=== PATIENT | female | born 1935 | race Caucasian/White ===

== ENCOUNTER 2016-07-18 10:08 | Observation (INO) | payer MEDICARE, OTHER ==
--- NOTE | 2016-07-18 11:25 | EDM.PDOC ---
ED HPI GI/ABDOMINAL - General Chief Complaint: Gastrointestinal Problem Stated Complaint: SOB, FLU SYMPTOMS, DIZZY Time Seen by Provider: 07/18/16 11:06 Source: Reports: Patient, Family, RN notes reviewed History Limitations: Reports: No limitations - History of Present Illness INITIAL COMMENTS - FREE TEXT/NARRATIVE: 80-year-old female presents emergency department a complaint of diarrhea she's been ill for the last 4 days has had loose watery stools on and off been feverish initially had upper respiratory type symptoms but that now has resolved her biggest concern is dehydration - Related Data Allergies/ADRs: Allergies Allergy/AdvReac Type Severity Reaction Status Date / Time gluten Allergy Diarrhea Verified 09/05/15 09:39 ibuprofen [From Motrin] Allergy Hives Verified 09/05/15 09:39 Iodinated Contrast Media - Allergy Hives Verified 09/05/15 09:39 Oral and [Iodinated Contrast Media - IV Dye] nifedipine [From Procardia] Allergy Redness Verified 09/05/15 09:39 Home Meds: Home Meds Acetaminophen/Diphenhydramine [Tylenol Pm Ex-Strength Caplet] 1 tab PO BEDTIME PRN 09/02/15 [History] Bismuth Subsalicylate [Pepto-Bismol To-Go] 2 tab PO ASDIRECTED PRN 09/02/15 [ History] Calcium Carbonate/Vitamin D3 [Calcium 500 + Vit D 400] 1 tab PO BID 09/02/15 [ History] Cholecalciferol (Vitamin D3) [Vitamin D3] 1,000 units PO DAILY 09/02/15 [History ] Clopidogrel [Plavix] 75 mg PO QPM 09/02/15 [History] Flaxseed 2 tbsp PO DAILY 09/02/15 [History] Loperamide [Imodium] 2 mg PO ASDIRECTED PRN 09/02/15 [History] Multivitamin [Multivitamins] 1 cap PO QPM 09/02/15 [History] Simvastatin [Zocor] 40 mg PO QPM 09/02/15 [History] Triamcinolone Acetonide 1 applic TOP BID 09/02/15 [History] Triamterene/Hydrochlorothiazid [Triamterene-HCTZ 37.5-25 MG] 1 tab-cap PO DAILY 09/02/15 [History] Pantoprazole Sodium [Protonix] 40 mg PO BID 09/04/15 [History] Past Medical History HEENT History: Reports: Cataract, Impaired vision, Other (see below) Other HEENT History: left hear decreased hearing Cardiovascular History: Reports: High cholesterol, Hypertension, SOB on exertion , Other (see below) Other Cardiovascular History: skip beat now and then rhythm issue, dependent cyanosis of feet bilat- no dx of PVD Gastrointestinal History: Reports: Cholelithiasis, Chronic diarrhea, GERD, Hemorrhoids, Other (see below) Other Gastrointestinal History: 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 Oncologic (Cancer) History: Reports: Squamous cell carcinoma, Other (see below) Other Oncologic History: basal cell, abnormal pap and hsterectomy (unkown if CA) Dermatologic History: Reports: Urticaria, Other (see below) Other Dermatologic History: unknown skin issue on head that comes and goes - Infectious Disease History Infectious Disease History: Reports: Measles, Pertussis (whooping cough) - Past Surgical History HEENT Surgical History: Reports: Cataract surgery Cardiovascular Surgical History: Reports: None GI Surgical History: Reports: Appendectomy, Cholecystectomy, Colonoscopy, EGD Female Surgical History: Reports: Hysterectomy Neurological Surgical History: Reports: None Musculoskeletal Surgical History: Reports: Other (see below) Other Musculoskeletal Surgeries/Procedures:: hand surgery both pikey fingers Dermatological Surgical History: Reports: Other (see below) Social & Family History - Family History Cardiac: Reports: [place] Endocrine/Metabolic: Reports: IDDM - Tobacco Use Smoking Status *Q: Never Smoker - Alcohol Use Days Per Week of Alcohol Use: 5 Number of Drinks Per Day: 2 Total Drinks Per Week: 10 - Recreational Drug Use Recreational Drug Use: No ED ROS GENERAL - Review of Systems Review Of Systems: See Below Constitutional: Reports: fever HEENT: Reports: No symptoms Respiratory: Reports: No Symptoms Cardiovascular: Reports: No symptoms GI/Abdominal: Reports: Diarrhea. Denies: Nausea, Vomiting : Reports: no symptoms Musculoskeletal: Reports: no symptoms Skin: Reports: no symptoms ED EXAM, GI/ABD - Physical Exam Exam: See Below Text/Narrative:: General: Female, not in any distress, alert and oriented x3 HEENT: head is atraumatic normocephalic, eyes pupils equal round reactive to light, sclera clear no conjunctivitis appreciated. Ears tympanic membrane PE tube in place open and functioning on the left, and brain clear stauffer on the right. Nose no septal deviation, nares are clear, no blood present. Mouth mucosa is moist and pink no erythema or exudate noted in soft palate, tongue is midline uvula is midline, dentition is intact. Neck: Supple no thyromegaly no tracheal deviation. Nodes: Cervical nodes subclavicular nodes nontender no palpable lymphadenopathy noted. Lungs: clear to auscultation bilaterally with symmetrical respirations, no adventitious noise appreciated. CV: Regular rate and rhythm S1 and S2 appreciated no murmurs rubs or gallops noted. Abdomen: Soft, nontender, no palpable masses or organomegaly appreciated, no distention no guarding bowel sounds are present, . Neuro: Cranial nerves II through XII grossly intact Skin: Warm and dry, intact Extremities: No lower extremity edema appreciated. Course - Vital Signs Last Recorded V/S: Last Vital Signs Temp 98.1 F 07/18/16 10:26 Pulse 64 07/18/16 14:50 Resp 22 H 07/18/16 14:50 BP 162/105 H 07/18/16 14:50 Pulse Ox 97 07/18/16 14:50 - Orders/Labs/Meds Orders: Active Orders 24 hr Category Date Time Status Peripheral IV Care [RC] . DIRECTED Care 07/18/16 12:38 Active CLOSTRIDIUM DIFFICILE BY PCR [RM] Stat Lab 07/18/16 14:20 Ordered CULTURE STOOL + SHIGATOX [RM] Stat Lab 07/18/16 14:21 Ordered UA W/MICROSCOPIC [URIN] Urgent Lab 07/18/16 14:47 Uncollected WBC, STOOL [OP] Stat Lab 07/18/16 14:21 Ordered Sodium Chloride 0.9% [Normal Saline] 1,000 ml Med 07/18/16 14:00 Active IV ASDIRECTED Sodium Chloride 0.9% [Saline Flush] Med 07/18/16 12:38 Active 10 ml FLUSH ASDIRECTED PRN Peripheral IV Insertion Adult [OM.PC] Urgent Oth 07/18/16 12:38 Ordered Medication Orders Sodium Chloride (Normal Saline) 1,000 mls @ 500 mls/hr IV ASDIRECTED YUN Last Admin: 07/18/16 14:17 Dose: 500 mls/hr Sodium Chloride (Saline Flush) 10 ml FLUSH ASDIRECTED PRN PRN Reason: Keep Vein Open Last Admin: 07/18/16 12:49 Dose: 10 ml Labs: Laboratory Tests 07/18/16 07/18/16 Range/Units 11:33 11:33 WBC 7.5 (4.5-11.0) K/uL RBC 4.69 (3.30-5.50) M/uL Hgb 15.4 H (12.0-15.0) g/dL Hct 44.2 (36.0-48.0) % MCV 94 (80-98) fL MCH 33 H (27-31) pg MCHC 35 (32-36) % Plt Count 157 (150-400) K/uL Neut % (Auto) 56 (36-66) % Lymph % (Auto) 31 (24-44) % [place] % (Auto) 12 H (2-6) % Eos % (Auto) 1 L (2-4) % Baso % (Auto) 1 (0-1) % Sodium 135 L (140-148) mmol/L Potassium 3.7 (3.6-5.2) mmol/L Chloride 98 L (100-108) mmol/L Carbon Dioxide 26 (21-32) mmol/L Anion Gap 14.7 H (5.0-14.0) mmol/L BUN 16 (7-18) mg/dL Creatinine 1.1 H (0.6-1.0) mg/dL Est Cr Clr Drug Dosing 39.46 mL/min Estimated GFR (MDRD) 48 L (>60) Glucose 107 H (74-106) mg/dL Calcium 8.6 (8.5-10.1) mg/dL Total Bilirubin 0.3 (0.2-1.0) mg/dL AST 21 (15-37) U/L ALT 23 (12-78) U/L Alkaline Phosphatase 52 (46-116) U/L Total Protein 7.3 (6.4-8.2) g/dL Albumin 3.7 (3.4-5.0) g/dL Globulin 3.6 H (2.3-3.5) g/dL Albumin/Globulin Ratio 1.0 L (1.2-2.2) Meds: Medications Generic Name Dose Route Start Last Admin Trade Name Freanais PRN Reason Stop Dose Admin Sodium Chloride 1,000 mls @ 500 mls/hr 07/18/16 14:00 07/18/16 14:17 Normal Saline IV 500 mls/hr ASDIRECTED YUN Administration Sodium Chloride 10 ml 07/18/16 12:38 07/18/16 12:49 Saline Flush FLUSH 10 ml ASDIRECTED PRN Administration Keep Vein Open Discontinued Medications Generic Name Dose Route Start Last Admin Trade Name Freanais PRN Reason Stop Dose Admin Sodium Chloride 1,000 mls @ 999 mls/hr 07/18/16 12:38 07/18/16 12:49 Normal Saline IV 07/18/16 13:38 999 mls/hr .BOLUS ONE Administration Departure - Departure Time of Disposition: 15:34 Disposition: Admitted As Inpatient 68 Condition: fair Clinical Impression: Weakness Diarrhea Qualifiers: Diarrhea type: presumed infectious Qualified Code(s): A09 - Infectious gastroenteritis and colitis, unspecified Forms: ED Department Discharge - My Orders Last 24 Hours: My Active Orders 07/18/16 12:38 Peripheral IV Care [RC] . DIRECTED Sodium Chloride 0.9% [Saline Flush] 10 ml FLUSH ASDIRECTED PRN Peripheral IV Insertion Adult [OM.PC] Urgent 07/18/16 14:00 Sodium Chloride 0.9% [Normal Saline] 1,000 ml IV ASDIRECTED 07/18/16 14:20 CLOSTRIDIUM DIFFICILE BY PCR [RM] Stat 07/18/16 14:21 CULTURE STOOL + SHIGATOX [RM] Stat WBC, STOOL [OP] Stat 07/18/16 14:47 UA W/MICROSCOPIC [URIN] Urgent - Assessment/Plan Last 24 Hours: My Active Orders 07/18/16 12:38 Peripheral IV Care [RC] . DIRECTED Sodium Chloride 0.9% [Saline Flush] 10 ml FLUSH ASDIRECTED PRN Peripheral IV Insertion Adult [OM.PC] Urgent 07/18/16 14:00 Sodium Chloride 0.9% [Normal Saline] 1,000 ml IV ASDIRECTED 07/18/16 14:20 CLOSTRIDIUM DIFFICILE BY PCR [RM] Stat 07/18/16 14:21 CULTURE STOOL + SHIGATOX [RM] Stat WBC, STOOL [OP] Stat 07/18/16 14:47 UA W/MICROSCOPIC [URIN] Urgent Plan: Assessment Acuity = acute Site and laterality = gastroenteritis Etiology = suspect viral cause Manifestations = severe diarrhea, weakness Location of injury = home Lab values = sodium of 135 consistent hyponatremia creatinine elevated at 1.1 consistent acute renal failure stage GIIIB, stool culture and urine culture awaiting sample Plan discussed the case with hospitalist deboning team leader he agreed to come and evaluate the patient in the for further evaluation admission, she is so weak she cannot ambulate around the ED Patient was in agreement with the plan all questions were answered This note was dictated using User[employer] voice recognition software please call with any questions.
[2016-07-18] MEDS ORDERED: Sodium Chloride 0.9% 1,000 ML IV ONE (12:38)
[2016-07-18] MEDS ORDERED: Sodium Chloride 0.9% 10 ML Syringe FLUSH PRN (12:38)
[2016-07-18] MEDS ORDERED: Sodium Chloride 0.9% 1,000 ML IV SCH (14:00)
--- NOTE | 2016-07-18 16:09 | PCM.HP ---
H&P History of Present Illness - General Date of Service: 07/18/16 Admit Problem/Dx: Admission Diagnosis/Problem Admission Diagnosis/Problem Diarrhea Source of Information: Patient, Family, Provider History Limitations: Reports: No limitations - History of Present Illness Initial Comments - Free Text/Narative: Renetta presents to the emergency room with diarrhea for 2 days and weakness. She reports initial onset of symptoms including mild sore throat and nasal congestion with mild cough. Later in the day she developed diarrhea and has had diarrhea for the past 2 days. She thinks that she has had 7 watery bowel movements during that time. She has had very little to eat or drink and has become progressively weak. She has a mild frontal headache that is achy in nature. She hasn't taken anything at home to make it feel better. Pain has been present and essentially unchanged for the last 2 days. No obvious triggers to make it worse. She's not aware of any sick contacts. She has had subjective fevers and chills but has not measured any temperatures. No dominant pain, nausea or vomiting. Workup in the emergency room has been reassuring. She is too weak to be safe for outpatient management so she will be admitted for hydration and observation. - Related Data Allergies/Adverse Reactions: Allergies Allergy/AdvReac Type Severity Reaction Status Date / Time gluten Allergy Diarrhea Verified 09/05/15 09:39 ibuprofen [From Motrin] Allergy Hives Verified 09/05/15 09:39 Iodinated Contrast Media - Allergy Hives Verified 09/05/15 09:39 Oral and [Iodinated Contrast Media - IV Dye] nifedipine [From Procardia] Allergy Redness Verified 09/05/15 09:39 Home Medications: Home Meds Acetaminophen/Diphenhydramine [Tylenol Pm Ex-Strength Caplet] 1 tab PO BEDTIME PRN 09/02/15 [History] Bismuth Subsalicylate [Pepto-Bismol To-Go] 2 tab PO ASDIRECTED PRN 09/02/15 [ History] Calcium Carbonate/Vitamin D3 [Calcium 500 + Vit D 400] 1 tab PO BID 09/02/15 [ History] Cholecalciferol (Vitamin D3) [Vitamin D3] 1,000 units PO DAILY 09/02/15 [History ] Clopidogrel [Plavix] 75 mg PO QPM 09/02/15 [History] Flaxseed 2 tbsp PO DAILY 09/02/15 [History] Loperamide [Imodium] 2 mg PO ASDIRECTED PRN 09/02/15 [History] Multivitamin [Multivitamins] 1 cap PO QPM 09/02/15 [History] Simvastatin [Zocor] 40 mg PO QPM 09/02/15 [History] Triamcinolone Acetonide 1 applic TOP BID 09/02/15 [History] Triamterene/Hydrochlorothiazid [Triamterene-HCTZ 37.5-25 MG] 1 tab-cap PO DAILY 09/02/15 [History] Pantoprazole Sodium [Protonix] 40 mg PO BID 09/04/15 [History] Past Medical History HEENT History: Reports: Cataract, Impaired vision, Other (see below) Other HEENT History: left hear decreased hearing Cardiovascular History: Reports: High cholesterol, Hypertension, SOB on exertion , Other (see below) Other Cardiovascular History: skip beat now and then rhythm issue, dependent cyanosis of feet bilat- no dx of PVD Gastrointestinal History: Reports: Cholelithiasis, Chronic diarrhea, GERD, Hemorrhoids, Other (see below) Other Gastrointestinal History: 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 Oncologic (Cancer) History: Reports: Squamous cell carcinoma, Other (see below) Other Oncologic History: basal cell, abnormal pap and hsterectomy (unkown if CA) Dermatologic History: Reports: Urticaria, Other (see below) Other Dermatologic History: unknown skin issue on head that comes and goes - Infectious Disease History Infectious Disease History: Reports: Measles, Pertussis (whooping cough) - Past Surgical History HEENT Surgical History: Reports: Cataract surgery Cardiovascular Surgical History: Reports: None GI Surgical History: Reports: Appendectomy, Cholecystectomy, Colonoscopy, EGD Female Surgical History: Reports: Hysterectomy Neurological Surgical History: Reports: None Musculoskeletal Surgical History: Reports: Other (see below) Other Musculoskeletal Surgeries/Procedures:: hand surgery both pikey fingers Dermatological Surgical History: Reports: Other (see below) Social & Family History - Family History Cardiac: Reports: [place] Endocrine/Metabolic: Reports: IDDM - Tobacco Use Smoking Status *Q: Never Smoker - Alcohol Use Days Per Week of Alcohol Use: 5 Number of Drinks Per Day: 2 Total Drinks Per Week: 10 - Recreational Drug Use Recreational Drug Use: No H&P Review of Systems - Review of Systems: Review Of Systems: See Below Free Text/Narrative: A complete 12 point review of systems was obtained. Pertinent positives and negatives are noted in the history of present illness. All other systems were reviewed and were negative except as noted. Exam - Exam Exam: See Below - Vital Signs Vital Signs: Last Vital Signs Temp 36.7 C 07/18/16 10:26 Pulse 64 07/18/16 14:50 Resp 22 H 07/18/16 14:50 BP 162/105 H 07/18/16 14:50 Pulse Ox 97 07/18/16 14:50 Weight: 66.678 kg - Exam Quality Assessment: No: supplemental oxygen, urinary catheter General: alert, oriented, cooperative, mild distress HEENT: Conjunctiva clear, Posterior pharynx clear. No: Mucosa moist & pink (dry ), Scleral icterus Neck: supple, trachea midline. No: lymphadenopathy, thyromegaly Lungs: Clear to auscultation, Normal respiratory effort Cardiovascular: regular rate, regular rhythm. No: systolic murmur Abdomen: soft, hyperactive bowel sounds. No: distention, tenderness Back Exam: normal inspection, full range of motion Extremities: normal inspection, normal pulses. No: edema Skin: warm, dry Neuro Extensive - Mental Status: alert, oriented x3 Neuro Extensive - Motor, Sensory, Reflexes: CN II-XII intact. No: dysarthria, abnormal motor, tremor Psychiatric: alert, normal affect - Patient Data Lab Results last 24 hrs: Laboratory Results - last 24 hr 07/18/16 07/18/16 Range/Units 11:33 11:33 WBC 7.5 (4.5-11.0) K/uL RBC 4.69 (3.30-5.50) M/uL Hgb 15.4 H (12.0-15.0) g/dL Hct 44.2 (36.0-48.0) % MCV 94 (80-98) fL MCH 33 H (27-31) pg MCHC 35 (32-36) % Plt Count 157 (150-400) K/uL Neut % (Auto) 56 (36-66) % Lymph % (Auto) 31 (24-44) % [place] % (Auto) 12 H (2-6) % Eos % (Auto) 1 L (2-4) % Baso % (Auto) 1 (0-1) % Sodium 135 L (140-148) mmol/L Potassium 3.7 (3.6-5.2) mmol/L Chloride 98 L (100-108) mmol/L Carbon Dioxide 26 (21-32) mmol/L Anion Gap 14.7 H (5.0-14.0) mmol/L BUN 16 (7-18) mg/dL Creatinine 1.1 H (0.6-1.0) mg/dL Est Cr Clr Drug Dosing 39.46 mL/min Estimated GFR (MDRD) 48 L (>60) Glucose 107 H (74-106) mg/dL Calcium 8.6 (8.5-10.1) mg/dL Total Bilirubin 0.3 (0.2-1.0) mg/dL AST 21 (15-37) U/L ALT 23 (12-78) U/L Alkaline Phosphatase 52 (46-116) U/L Total Protein 7.3 (6.4-8.2) g/dL Albumin 3.7 (3.4-5.0) g/dL Globulin 3.6 H (2.3-3.5) g/dL Albumin/Globulin Ratio 1.0 L (1.2-2.2) Result Diagrams: 07/18/16 11:33 07/18/16 11:33 *Q Meaningful Use (ADM) - VTE *Q VTE Criteria *Q: - Stroke *Q Stroke Criteria *Q: - AMI *Q AMI Criteria *Q: - Problem List (1) Enteritis SNOMED Code(s): 92794153 ICD Code: K52.9 - NONINFECTIVE GASTROENTERITIS AND COLITIS, UNSPECIFIED Status: Acute Current Visit: Yes (2) Weakness SNOMED Code(s): 82651815 ICD Code: R53.1 - WEAKNESS Status: Acute Current Visit: Yes Problem List Initiated/Reviewed/Updated: Yes Orders Last 24hrs: Active Orders 24 hr Category Date Time Status Patient Status Manage Transfer [TRANSFER] Routine ADT 07/18/16 16:00 Ordered Peripheral IV Care [RC] . DIRECTED Care 07/18/16 12:38 Active CLOSTRIDIUM DIFFICILE BY PCR [RM] Stat Lab 07/18/16 14:20 Ordered CULTURE STOOL + SHIGATOX [RM] Stat Lab 07/18/16 14:21 Ordered UA W/MICROSCOPIC [URIN] Urgent Lab 07/18/16 14:47 Uncollected WBC, STOOL [OP] Stat Lab 07/18/16 14:21 Ordered Sodium Chloride 0.9% [Normal Saline] 1,000 ml Med 07/18/16 14:00 Active IV ASDIRECTED Sodium Chloride 0.9% [Saline Flush] Med 07/18/16 12:38 Active 10 ml FLUSH ASDIRECTED PRN Peripheral IV Insertion Adult [OM.PC] Urgent Oth 07/18/16 12:38 Ordered Resuscitation Status Routine Resus Stat 07/18/16 16:02 Ordered Medication Orders Sodium Chloride (Normal Saline) 1,000 mls @ 500 mls/hr IV ASDIRECTED YUN Last Admin: 07/18/16 14:17 Dose: 500 mls/hr Sodium Chloride (Saline Flush) 10 ml FLUSH ASDIRECTED PRN PRN Reason: Keep Vein Open Last Admin: 07/18/16 12:49 Dose: 10 ml Assessment/Plan Comment:: Assessment and plan - Enteritis - viral-type picture with suspected with upper respiratory symptoms and diarrhea. Laboratory studies are essentially normal. She was not febrile. Exam is relatively benign. With her dehydration and weakness she was not safe for outpatient management. Urine sample is pending. Stool studies ordered but with no recent antibiotics I think C. difficile infection is very unlikely. I would anticipate improvement with hydration and symptom management. -IV fluids -Antinausea medications -Imodium if she has additional diarrhea -CT scan if condition worsens Essential hypertension - Hold diuretic antihypertensives with dehydration, reassess in the morning Maintenance issues - - DVT prophylaxis - mechanical - GI prophylaxis - PPI - Nutrition - regular diet - Dee catheter - not indicated CODE STATUS - full code Admission justification - the patient will be referred observation status for hydration and symptom management overnight Disposition - anticipate discharge to home tomorrow Primary care physician - Dr Matthew Negron M.D.
[2016-07-18] MEDS ORDERED: Acetaminophen 325 MG Tab PO PRN (16:43)
[2016-07-18] MEDS ORDERED: Loperamide 2 MG Cap PO PRN (16:43)
[2016-07-18] MEDS ORDERED: Ondansetron 4 MG Tab.DIS PO PRN (16:43)
[2016-07-18] MEDS ORDERED: CLOPIDOGREL 75 MG PO SCH (17:45)
[2016-07-18] MEDS: Sodium Chloride 0.9% 1,000 ML IV SCH (18:01)
[2016-07-18] MEDS: PANTOPRAZOLE 40 MG PO SCH ×2 (20:38→20:42)
[2016-07-19] MEDS: Sodium Chloride 0.9% 1,000 ML IV SCH (00:20)
[2016-07-19 08:46] VITALS: BP 118/65
[2016-07-19] MEDS: PANTOPRAZOLE 40 MG PO SCH (08:47)
--- NOTE | 2016-07-19 09:55 | PCM.DCSUM1 ---
Discharge Summary - Hospital Course Brief History: 80-year-old female with history of hypertension and gluten intolerance who presented with diarrhea and weakness and was admitted for hydration and management of viral gastroenteritis. - Discharge Data Discharge Date: 07/19/16 Discharge Disposition: Home, Self-Care 01 Condition: Good - Discharge Diagnosis/Problem(s) (1) Enteritis SNOMED Code(s): 05667220 ICD Code: K52.9 - NONINFECTIVE GASTROENTERITIS AND COLITIS, UNSPECIFIED Status: Acute (2) Weakness SNOMED Code(s): 82195741 ICD Code: R53.1 - WEAKNESS Status: Acute - Patient Summary/Data Hospital Course: Renetta presented to the emergency room with 2 days of diarrhea and generalized weakness. Workup in the emergency room was reassuring the patient was extremely weak and was admitted for hydration and observation. There were no acute events overnight following admission. She did receive gentle IV fluids overnight. The morning after admission she continues to tolerate her diet well with no nausea, vomiting or abdominal pain. She has not had any fevers and has not had any diarrhea. Her strength has improved but she's not yet back to baseline. She does feel comfortable going home at this point after her hydration and resolution of the diarrhea. She did receive a single dose of potassium chloride for mild hypokalemia. I suspect that the infection was viral in nature. She does have some nasal congestion and I recommended that she use Afrin. She will followup of her symptoms do not continue to get better or they get worse. - Patient Instructions Diet: Regular Diet as Tolerated (soft and bland foods for the next few days), Drink 8-10+ Glasses/Day Activity: As Tolerated Driving: May Drive Today Showering/Bathing: May Shower Notify Provider of: Fever, Increased Pain, Nausea and/or Vomiting Other/Special Instructions: 1. You were in the hospital for management of diarrhea and weakness presumed to be caused by a viral infection. The diarrhea seems to have resolved without any intervention. Your strength is improving with hydration. You could consider using oxymetazoline (Afrin) nasal spray to help with your congestion. You can use this twice daily and I would recommend using it at bedtime and in the morning when you wake up. If you have additional episodes of diarrhea you can continue to use the Imodium. Please do your best to stay hydrated and you could consider using sports drinks such as Gatorade or Powerade to help maintain hydration but often times water it is sufficient. 2. Please seek medical attention if you develop fever greater than 101, persistent nausea with vomiting or severe abdominal pain or diarrhea but do not improve with Imodium. - Discharge Plan Home Medications: Home Meds Acetaminophen/Diphenhydramine [Tylenol Pm Ex-Strength Caplet] 1 tab PO BEDTIME PRN 09/02/15 [History] Bismuth Subsalicylate [Pepto-Bismol To-Go] 2 tab PO ASDIRECTED PRN 09/02/15 [ History] Calcium Carbonate/Vitamin D3 [Calcium 500 + Vit D 400] 1 tab PO BID 09/02/15 [ History] Cholecalciferol (Vitamin D3) [Vitamin D3] 1,000 units PO DAILY 09/02/15 [History ] Clopidogrel [Plavix] 75 mg PO QPM 09/02/15 [History] Flaxseed 2 tbsp PO DAILY 09/02/15 [History] Loperamide [Imodium] 2 mg PO ASDIRECTED PRN 09/02/15 [History] Multivitamin [Multivitamins] 1 cap PO QPM 09/02/15 [History] Simvastatin [Zocor] 40 mg PO QPM 09/02/15 [History] Triamcinolone Acetonide 1 applic TOP BID 09/02/15 [History] Triamterene/Hydrochlorothiazid [Triamterene-HCTZ 37.5-25 MG] 1 tab-cap PO DAILY 09/02/15 [History] Pantoprazole Sodium [Protonix] 40 mg PO ACBREAKFAST 09/04/15 [History] Patient Handouts: Viral Gastroenteritis, Adult Referrals: Tae Castro MD [Primary Care Provider] - (f/u if your symptoms do not continue to improve or they get worse) - Discharge Summary/Plan Comment DC Time >30 min.: No (25) - Patient Data Vitals - Most Recent: Last Vital Signs Temp 36.1 C 07/19/16 08:45 Pulse 58 L 07/19/16 08:45 Resp 18 07/19/16 08:45 BP 118/65 07/19/16 08:45 Pulse Ox 97 07/19/16 08:45 Weight - Most Recent: 66.678 kg I&O - Last 24 hours: Intake & Output 07/18/16 07/19/16 07/19/16 22:59 06:59 14:59 Intake Total 1627 Output Total 750 1300 Balance -750 327 Lab Results - Last 24 hrs: Laboratory Results - last 24 hr 07/18/16 07/19/16 07/19/16 Range/Units 16:30 05:39 05:39 WBC 5.6 (4.5-11.0) K/uL RBC 4.07 (3.30-5.50) M/uL Hgb 12.7 D (12.0-15.0) g/dL Hct 38.3 (36.0-48.0) % MCV 94 (80-98) fL MCH 31 (27-31) pg MCHC 33 (32-36) % Plt Count 138 L (150-400) K/uL Sodium 143 (140-148) mmol/L Potassium 3.2 L (3.6-5.2) mmol/L Chloride 111 H (100-108) mmol/L Carbon Dioxide 25 (21-32) mmol/L Anion Gap 10.2 (5.0-14.0) mmol/L BUN 11 (7-18) mg/dL Creatinine 0.9 (0.6-1.0) mg/dL Est Cr Clr Drug Dosing 48.23 mL/min Estimated GFR (MDRD) > 60 (>60) Glucose 85 (74-106) mg/dL Calcium 7.5 L (8.5-10.1) mg/dL Urine Color Yellow Urine Appearance Clear Urine pH 7.0 (4.5-8.0) Ur Specific [place] 1.010 (1.008-1.030) Urine Protein Negative (NEGATIVE) mg/dL Urine Glucose (UA) Normal (NEGATIVE) mg/dL Urine Ketones Negative (NEGATIVE) mg/dL Urine Occult Blood Negative (NEGATIVE) Urine Nitrite Negative (NEGATIVE) Urine Bilirubin Negative (NEGATIVE) Urine Urobilinogen Normal (NORMAL) mg/dL Ur Leukocyte Esterase Negative (NEGATIVE) Urine RBC Not seen (0-5) Urine WBC 5-10 H (0-5) Ur Epithelial Cells Few Amorphous Sediment Not seen Urine Bacteria Moderate Urine Mucus Not seen Med Orders - Current: Current Medications Acetaminophen (Tylenol) 650 mg PO Q4H PRN PRN Reason: Pain (Mild 1-3)/fever Last Admin: 07/19/16 06:04 Dose: 650 mg Clopidogrel Bisulfate (Plavix) 75 mg PO QPM [facility] Last Admin: 07/18/16 18:01 Dose: 75 mg Sodium Chloride (Normal Saline) 1,000 mls @ 125 mls/hr IV ASDIRECTED [facility] Last Admin: 07/19/16 00:20 Dose: 125 mls/hr Loperamide HCl (Imodium) 2 mg PO Q4H PRN PRN Reason: Diarrhea Ondansetron HCl (Zofran Odt) 4 mg PO Q6H PRN PRN Reason: Nausea able to take PO Pantoprazole Sodium (Protonix) 40 mg PO BID [facility] Last Admin: 07/19/16 08:47 Dose: 40 mg Potassium Chloride (Klor-Con M20) 40 meq PO ONETIME ONE Stop: 07/19/16 10:01 Sodium Chloride (Saline Flush) 10 ml FLUSH ASDIRECTED PRN PRN Reason: Keep Vein Open Last Admin: 07/18/16 12:49 Dose: 10 ml Discontinued Medications Sodium Chloride (Normal Saline) 1,000 mls @ 999 mls/hr IV .BOLUS ONE Stop: 07/18/16 13:38 Last Admin: 07/18/16 12:49 Dose: 999 mls/hr Sodium Chloride (Normal Saline) 1,000 mls @ 500 mls/hr IV ASDIRECTED [facility] Last Admin: 07/18/16 14:17 Dose: 500 mls/hr *Q Meaningful Use (DIS) - VTE *Q VTE Criteria *Q: - Stroke *Q Stroke Criteria *Q: - AMI *Q AMI Criteria *Q:
[2016-07-19] MEDS ORDERED: Potassium Chloride 20 MEQ Tab.ER PO ONE (10:00)
== END 2016-07-19 12:05 | disposition home or self-care (01) ==
LOC: JP.ED 10:08 → JP.MS 16:00
PROVIDERS: ADMIT Internal Medicine; ATTEND Internal Medicine
DX: A08.4 Viral intestinal infection, unspecified (principal); R53.1 Weakness; Z88.8 Allergy status to other drugs, medicaments and biological substances; Z91.02 Food additives allergy status; Z88.6 Allergy status to analgesic agent; Z91.041 Radiographic dye allergy status; Z79.02 Long term (current) use of antithrombotics/antiplatelets; Z79.899 Other long term (current) drug therapy; H91.92 Unspecified hearing loss, left ear; E78.00 Pure hypercholesterolemia, unspecified; I10 Essential (primary) hypertension; R06.02 Shortness of breath; K21.9 Gastro-esophageal reflux disease without esophagitis; K52.9 Noninfective gastroenteritis and colitis, unspecified; M19.90 Unspecified osteoarthritis, unspecified site; Z86.73 Personal history of transient ischemic attack (TIA), and cerebral infarction without residual deficits; E55.9 Vitamin D deficiency, unspecified
CPT/HCPCS: 36415; 80048; 80053; 81001; 85025; 85027; 96361; 99285; A9270; G0378; J7040; J7050; 96360; 99217; 99218

== ENCOUNTER 2019-05-20 13:10 | Emergency (ER) | payer MEDICARE, BC ==
--- NOTE | 2019-05-20 14:00 | EDM.PDOC ---
ED HPI GENERAL MEDICAL PROBLEM - General Chief Complaint: Cardiovascular Problem Stated Complaint: PAIN NECK, ARM, AND BACK- SOB Time Seen by Provider: 05/20/19 13:35 Source of Information: Reports: Patient, Family History Limitations: Reports: No Limitations - History of Present Illness INITIAL COMMENTS - FREE TEXT/NARRATIVE: 83-year-old female comes into the emergency room with intermittent left-sided neck pain, intermittent left arm pain and a pressure sensation in her upper abdomen and left chest for the past 8 hours. She has been having intermittent chest pains, had a Cardiolite stress test earlier this week which was inconclusive and has a cardiology consultation next week. She has been extremely anxious. This morning she got up and her legs felt weak, she started to become worried and anxious and then developed the vague left chest and back discomfort, left neck discomfort but no shortness of breath or nausea. No diaphoresis. After a few hours of worrying about this, she called her daughter and brought her in. An EKG was done on arrival which showed a left bundle branch block consistent with her EKG done 4 days ago. Onset: Sudden Duration: Hour(s): (Symptoms started 7 hours ago, she felt fine yesterday) Location: Reports: Neck, Chest, Upper Extremity, Left Quality: Reports: Ache - Related Data Allergies Allergy/AdvReac Type Severity Reaction Status Date / Time ibuprofen [From Motrin] Allergy Hives Verified 05/20/19 13:28 Iodinated Contrast Media Allergy Hives Verified 05/20/19 13:28 [Iodinated Contrast Media - IV Dye] nifedipine [From Procardia] Allergy Redness Verified 05/20/19 13:28 gluten AdvReac Diarrhea Verified 05/20/19 13:28 Home Meds: Home Meds Bismuth Subsalicylate [Pepto-Bismol To-Go] 2 tab PO ASDIRECTED PRN 09/02/15 [ History] Calcium Carbonate/Vitamin D3 [Calcium 500 + Vit D 400] 1 tab PO BID 09/02/15 [ History] Cholecalciferol (Vitamin D3) [Vitamin D3] 1,000 units PO DAILY 09/02/15 [History ] Clopidogrel [Plavix] 75 mg PO QPM 09/02/15 [History] Flaxseed 2 tbsp PO DAILY 09/02/15 [History] Loperamide [Imodium] 2 mg PO ASDIRECTED PRN 09/02/15 [History] Multivitamin [Multivitamins] 1 cap PO QPM 09/02/15 [History] Simvastatin [Zocor] 40 mg PO QPM 09/02/15 [History] Triamcinolone Acetonide 1 applic TOP BID 09/02/15 [History] Triamterene/Hydrochlorothiazid [Triamterene-HCTZ 37.5-25 MG] 1 tab-cap PO DAILY 09/02/15 [History] Diphenoxylate HCl/Atropine [Diphenoxylate-Atrop 2.5-0.025] 2 tab PO QID PRN [History] L. Acidophilus/L.bulgaricus [Lactobacillus Tablet] 1 tab PO DAILY 05/12/19 [ History] [place]-3/DHA/Epa/Fish Oil [[place] 3 500 Softgel] 1 cap PO DAILY 05/12/19 [History] diphenhydrAMINE HCL [Diphenhydramine HCl] 0.5 - 1 tab PO QPM PRN 05/12/19 [ History] Past Medical History HEENT History: Reports: Cataract, Impaired Vision, Other (See Below) Other HEENT History: left hear decreased hearing Cardiovascular History: Reports: High Cholesterol, Hypertension, CT, SOB on Exertion, Other (See Below) Other Cardiovascular History: skip beat now and then rhythm issue, dependent cyanosis of feet bilat- no dx of PVD Gastrointestinal History: Reports: Cholelithiasis, Chronic Diarrhea, GERD, Hemorrhoids Other Gastrointestinal History: 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 Oncologic (Cancer) History: Reports: Squamous Cell Carcinoma Other Oncologic History: basal cell, abnormal pap and hsterectomy (unkown if CA) Dermatologic History: Reports: Urticaria, Other (See Below) Other Dermatologic History: unknown skin issue on head that comes and goes - Infectious Disease History Infectious Disease History: Reports: Measles, Pertussis (Whooping Cough) - Past Surgical History HEENT Surgical History: Reports: Cataract Surgery Female Surgical History: Reports: Hysterectomy Social & Family History - Family History Family Medical History: Noncontributory Cardiac: Reports: Bypass, CT Endocrine/Metabolic: Reports: IDDM - Tobacco Use Smoking Status *Q: Never Smoker - Caffeine Use Caffeine Use: Reports: Coffee - Alcohol Use Days Per Week of Alcohol Use: 5 Number of Drinks Per Day: 1 Total Drinks Per Week: 5 - Recreational Drug Use Recreational Drug Use: No ED ROS GENERAL - Review of Systems Review Of Systems: See Below Constitutional: Denies: Fever, Chills, Malaise HEENT: Reports: Other (Left jaw and left neck had a dull ache this morning) Respiratory: Denies: Shortness of Breath, Cough Cardiovascular: Reports: Chest Pain (Mild left-sided chest pressure) GI/Abdominal: Reports: Other (Patient is been having a lot of GI symptoms over the past several years, including heartburn, increased flatulence, distention and gas) : Reports: No Symptoms Skin: Reports: No Symptoms Neurological: Reports: Dizziness. Denies: Headache Psychiatric: Reports: Anxiety ED EXAM, GENERAL - Physical Exam Exam: See Below Exam Limited By: No Limitations General Appearance: Alert, Anxious Eye Exam: Bilateral Eye: Normal Inspection Head: Atraumatic Neck: Normal Inspection, Non-Tender Respiratory/Chest: No Respiratory Distress, Lungs Clear Cardiovascular: Regular Rate, Rhythm, Extra Beats (Occasional extra beats, approximately 1/min) GI/Abdominal: Normal Bowel Sounds, Soft, Non-Tender Extremities: Normal Inspection. No: Pedal Edema Neurological: Alert, Oriented Psychiatric: Anxious Skin Exam: Warm, Dry EKG INTERPRETATION Rhythm: NSR QRS: LBBB Comparison: No Change (No change from 4 days ago) Course - Vital Signs Last Recorded V/S: Last Vital Signs Temp 95.6 F 05/20/19 13:32 Pulse 65 05/20/19 14:30 Resp 13 05/20/19 14:30 BP 164/70 H 05/20/19 14:30 Pulse Ox 97 05/20/19 14:30 - Orders/Labs/Meds Orders: Active Orders 24 hr Category Date Time Status EKG Documentation Completion [RC] ASDIRECTED Care 05/20/19 13:55 Active EKG 12 Lead [EK] Routine Ther 05/20/19 13:54 Ordered Labs: Laboratory Tests 05/20/19 05/20/19 Range/Units 14:09 14:09 WBC 7.3 (4.5-11.0) K/uL RBC 4.43 (3.30-5.50) M/uL Hgb 14.2 (12.0-15.0) g/dL Hct 42.7 (36.0-48.0) % MCV 96 (80-98) fL MCH 32 H (27-31) pg MCHC 33 (32-36) % Plt Count 160 (150-400) K/uL Neut % (Auto) 60 (36-66) % Lymph % (Auto) 31 (24-44) % [place] % (Auto) 8 H (2-6) % Eos % (Auto) 1 L (2-4) % Baso % (Auto) 0 (0-1) % Sodium 140 (140-148) mmol/L Potassium 3.3 L (3.6-5.2) mmol/L Chloride 102 (100-108) mmol/L Carbon Dioxide 28 (21-32) mmol/L Anion Gap 13.3 (5.0-14.0) mmol/L BUN 18 D (7-18) mg/dL Creatinine 1.0 (0.6-1.0) mg/dL Est Cr Clr Drug Dosing 39.70 mL/min Estimated GFR (MDRD) 53 L (>60) Glucose 86 (74-106) mg/dL Calcium 9.6 D (8.5-10.1) mg/dL Troponin I < 0.017 (0.000-0.056) ng/mL - Re-Assessments/Exams Free Text/Narrative Re-Assessment/Exam: 05/20/19 13:59 EKG was stable from 4 days ago. Patient was very anxious with moderately elevated blood pressure, but no other objective findings such as diaphoresis or shortness of breath. CBC, BMP and troponin were drawn. She was kept on cardiac monitoring pending lab results. 05/20/19 14:39 Patient was monitored in the ER for an hour while awaiting labs, she calmed down and blood pressure normalized. No further symptoms. Labs were reassuring , troponin was 0. No reason for hospitalization or more urgent consultation, she can keep her appointment next week as planned and return if worsening or concerns Departure - Departure Time of Disposition: 14:54 Disposition: Home, Self-Care 01 Clinical Impression: Atypical chest pain, Anxiety about health Instructions: Nonspecific Chest Pain Referrals: Tae Castro MD [Primary Care Provider] - Forms: ED Department Discharge Care Plan Goals: Activity and diet as tolerated, continue any current medications and consider restarting antiacid therapy. Return if worsening or you develop other concerns , otherwise keep your appointment next week as planned. Sepsis Event Note - Evaluation Sepsis Screening Result: No Definite Risk - Focused Exam Vital Signs: Vital Signs Temp Pulse Resp BP Pulse Ox 05/20/19 14:30 65 13 164/70 H 97 05/20/19 13:32 95.6 F 67 12 191/90 H 97 05/20/19 13:26 95.6 F 67 12 191/90 H 97 05/20/19 13:15 71 14 176/83 H 96 Date Exam was Performed: 05/20/19 Time Exam was Performed: 15:35 - My Orders Last 24 Hours: My Active Orders 05/20/19 13:54 EKG 12 Lead [EK] Routine 05/20/19 13:55 EKG Documentation Completion [RC] ASDIRECTED - Assessment/Plan Last 24 Hours: My Active Orders 05/20/19 13:54 EKG 12 Lead [EK] Routine 05/20/19 13:55 EKG Documentation Completion [RC] ASDIRECTED
[2019-05-20 14:54] VITALS: BP 164/70; PULSE 65
== END 2019-05-20 14:54 | disposition home or self-care (01) ==
LOC: JP.ED 13:10
DX: R07.89 Other chest pain (principal); F41.9 Anxiety disorder, unspecified; Z91.041 Radiographic dye allergy status; E78.00 Pure hypercholesterolemia, unspecified; I10 Essential (primary) hypertension; I25.2 Old myocardial infarction; K21.9 Gastro-esophageal reflux disease without esophagitis; G43.909 Migraine, unspecified, not intractable, without status migrainosus; Z86.73 Personal history of transient ischemic attack (TIA), and cerebral infarction without residual deficits; Z85.828 Personal history of other malignant neoplasm of skin; Z88.8 Allergy status to other drugs, medicaments and biological substances; Z79.899 Other long term (current) drug therapy; Z79.02 Long term (current) use of antithrombotics/antiplatelets; Z90.710 Acquired absence of both cervix and uterus
CPT/HCPCS: 36415; 80048; 84484; 85025; 93005; 93010; 99283; 99285-25

== ENCOUNTER 2020-05-18 08:18 | Emergency (ER) | payer MEDICARE, BC ==
[2020-05-18] MEDS ORDERED: Sodium Chloride 0.9% 10 ML Syringe FLUSH PRN (08:40)
[2020-05-18 08:48] VITALS: PULSE 65
--- NOTE | 2020-05-18 08:49 | EDM.PDOC ---
ED HPI GENERAL MEDICAL PROBLEM - General Chief Complaint: Chest Pain Stated Complaint: [facility] Time Seen by Provider: 05/18/20 08:45 Source of Information: Reports: Patient, Old Records, RN History Limitations: Reports: No Limitations - History of Present Illness INITIAL COMMENTS - FREE TEXT/NARRATIVE: 84 yo female here with intermittent upper back pain since relieved with acetaminophen transiently and intermittent anterior neck pain. No nausea, SOB or diaphoresis. Has a pHx of "a silent [place]" per patient and has seen a home office claim specialist in the past few mos. Arrives via EMS who started a NTG drip en route and gave aspirin 324 mg. Onset: Gradual Onset Date: 05/16/20 Duration: Day(s):, Intermittent, Waxing/Waning Location: Reports: Neck, Back Quality: Reports: Ache Severity: Mild Improves with: Reports: Medication (acetaminophen) Worsens with: Reports: Other (unknown) Context: Reports: Other (See HPI) Associated Symptoms: Denies: Confusion, Chest Pain, Cough, Fever/Chills, Nausea/Vomiting, Shortness of Breath Treatments MECHANICAL ENGINEERING DIRECTOR: Reports: Aspirin, Nitroglycerin Chest Pain Score (Numeric/FACES): 2 - Related Data Allergies Allergy/AdvReac Type Severity Reaction Status Date / Time ibuprofen [From Motrin] Allergy Hives Verified 05/18/20 08:39 Iodinated Contrast Media Allergy Hives Verified 05/18/20 08:39 [Iodinated Contrast Media - IV Dye] nifedipine [From Procardia] Allergy Redness Verified 05/18/20 08:39 gluten AdvReac Diarrhea Verified 05/18/20 08:39 Home Meds: Home Meds Bismuth Subsalicylate [Pepto-Bismol To-Go] 2 tab PO ASDIRECTED PRN 09/02/15 [ History] Calcium Carbonate/Vitamin D3 [Calcium 500 + Vit D 400] 1 tab PO BID 09/02/15 [History] Cholecalciferol (Vitamin D3) [Vitamin D3] 1,000 units PO DAILY 09/02/15 [History] Clopidogrel [Plavix] 75 mg PO QPM 09/02/15 [History] Flaxseed 2 tbsp PO DAILY 09/02/15 [History] Multivitamin [Multivitamins] 1 cap PO QPM 09/02/15 [History] Triamcinolone Acetonide 1 applic TOP BID 09/02/15 [History] Diphenoxylate HCl/Atropine [Diphenoxylate-Atrop 2.5-0.025] 2 tab PO QID PRN 05/12/19 [History] Flushing-3/DHA/Epa/Fish Oil [Flushing 3 500 Softgel] 1 cap PO DAILY 05/12/19 [History] diphenhydrAMINE HCL [Diphenhydramine HCl] 0.5 - 1 tab PO QPM PRN 05/12/19 [History] Isosorbide Mononitrate [Imdur] 30 mg PO DAILY 05/18/20 [History] Metoprolol Succinate [Toprol XL] 25 mg PO DAILY 05/18/20 [History] Pantoprazole [ProTONIX] 40 mg PO DAILY 05/18/20 [History] atorvaSTATin [Lipitor] 40 mg PO BEDTIME 05/18/20 [History] lisinopriL [Lisinopril] 5 mg PO DAILY 05/18/20 [History] Past Medical History HEENT History: Reports: Cataract, Impaired Vision, Other (See Below) Other HEENT History: left hear decreased hearing Cardiovascular History: Reports: High Cholesterol, Hypertension, [place], SOB on Exertion, Other (See Below) Other Cardiovascular History: skip beat now and then rhythm issue, dependent cyanosis of feet bilat- no dx of PVD Gastrointestinal History: Reports: Cholelithiasis, Chronic Diarrhea, GERD, Hemorrhoids Other Gastrointestinal History: 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 Oncologic (Cancer) History: Reports: Squamous Cell Carcinoma Other Oncologic History: basal cell, abnormal pap and hsterectomy (unkown if CA) Dermatologic History: Reports: Urticaria, Other (See Below) Other Dermatologic History: unknown skin issue on head that comes and goes - Infectious Disease History Infectious Disease History: Reports: Measles, Pertussis (Whooping Cough) - Past Surgical History HEENT Surgical History: Reports: Cataract Surgery Female Surgical History: Reports: Hysterectomy Social & Family History - Family History Family Medical History: No Pertinent Family History Cardiac: Reports: [place], [place] Endocrine/Metabolic: Reports: IDDM - Caffeine Use Caffeine Use: Reports: Coffee ED ROS GENERAL - Review of Systems Review Of Systems: See Below Constitutional: Reports: No Symptoms HEENT: Reports: No Symptoms Respiratory: Reports: No Symptoms Cardiovascular: Reports: No Symptoms GI/Abdominal: Reports: No Symptoms : Reports: No Symptoms Musculoskeletal: Reports: Neck Pain (anterior, intermittent), Back Pain (upper) Skin: Reports: No Symptoms Neurological: Reports: No Symptoms Psychiatric: Reports: Anxiety (hx of anxiety) ED EXAM, GENERAL - Physical Exam Exam: See Below Exam Limited By: No Limitations General Appearance: Alert, WD/WN, No Apparent Distress Eye Exam: Bilateral Eye: Normal Inspection Ears: Normal External Exam, Normal Canal, Hearing Grossly Normal Ear Exam: Bilateral Ear: Auricle Normal, Canal Normal Nose: Normal Inspection, No Blood Throat/Mouth: Normal Inspection, Normal Lips, Normal Oropharynx, Normal Voice, No Airway Compromise Head: Atraumatic, Normocephalic Neck: Normal Inspection Respiratory/Chest: No Respiratory Distress, Lungs Clear, Normal Breath Sounds, No Accessory Muscle Use, Chest Non-Tender Cardiovascular: Regular Rate, Rhythm, No Edema GI/Abdominal: Normal Bowel Sounds, Soft, Non-Tender, No Distention Extremities: Normal Inspection, Normal Range of Motion, Non-Tender, No Pedal Edema. No: Pedal Edema Neurological: Alert, Oriented, CN II-XII Intact, Normal Cognition, No Motor/Sensory Deficits Psychiatric: Normal Affect, Normal Mood Skin Exam: Warm, Dry, Intact, Normal Color, No Rash #1 Interpretation EKG Date: 05/18/20 Time: 08:30 Rhythm: NSR Rate (Beats/Min): 63 [place]: Normal P-Wave: Present QRS: LBBB ST-T: Depressed (V6 depression with flipped T's in I, AVL) QT: Normal Comparison: Change From Previous EKG (only change is the slight depression in V6.) Course - Vital Signs Last Recorded V/S: Last Vital Signs Temp 36.5 C 05/18/20 08:48 Pulse 65 05/18/20 08:48 Resp 11 L 05/18/20 10:00 BP 166/76 H 05/18/20 10:00 Pulse Ox 96 05/18/20 10:00 - Orders/Labs/Meds Orders: Active Orders 24 hr Category Date Time Status Cardiac Monitoring [RC] .As Directed Care 05/18/20 08:31 Active EKG Documentation Completion [RC] ASDIRECTED Care 05/18/20 08:31 Active UA W/MICROSCOPIC [URIN] Stat Lab 05/18/20 08:40 Ordered Sodium Chloride 0.9% [Saline Flush] Med 05/18/20 08:40 Active 10 ml FLUSH ASDIRECTED PRN Saline Lock Insert [OM.PC] Routine Oth 05/18/20 08:40 Ordered EKG 12 Lead [EK] Routine Ther 05/18/20 08:31 Ordered Medication Orders Sodium Chloride (Saline Flush) 10 ml FLUSH ASDIRECTED PRN PRN Reason: Keep Vein Open Last Admin: 05/18/20 08:53 Dose: 10 ml Documented by: ANDREW Labs: Laboratory Tests 05/18/20 05/18/20 05/18/20 Range/Units 08:48 08:48 11:00 WBC 6.0 (4.5-11.0) K/uL RBC 4.14 (3.30-5.50) M/uL Hgb 13.4 (12.0-15.0) g/dL Hct 40.0 (36.0-48.0) % MCV 97 (80-98) fL MCH 32 H (27-31) pg MCHC 34 (32-36) % Plt Count 181 (150-400) K/uL Sodium 138 L (140-148) mmol/L Potassium 4.2 (3.6-5.2) mmol/L Chloride 100 (100-108) mmol/L Carbon Dioxide 28 (21-32) mmol/L Anion Gap 14.2 H (5.0-14.0) mmol/L BUN 18 (7-18) mg/dL Creatinine 1.0 (0.6-1.0) mg/dL Est Cr Clr Drug Dosing 40.38 mL/min Estimated GFR (MDRD) 53 L (>60) Glucose 113 H (74-106) mg/dL Calcium 9.9 (8.5-10.1) mg/dL Troponin I < 0.017 0.017 (0.000-0.056) ng/mL Meds: Medications Generic Name Dose Route Start Last Admin Trade Name Freq PRN Reason Stop Dose Admin Sodium Chloride 10 ml 05/18/20 08:40 05/18/20 08:53 Saline Flush FLUSH 10 ml ASDIRECTED PRN Administration Keep Vein Open Discontinued Medications Generic Name Dose Route Start Last Admin Trade Name Ronnieq PRN Reason Stop Dose Admin Acetaminophen 1,000 mg 05/18/20 08:59 05/18/20 09:42 Tylenol Extra Strength PO 05/18/20 09:00 1,000 mg ONETIME ONE Administration Aspirin 324 mg 05/18/20 08:54 05/18/20 08:59 Aspirin PO 05/18/20 08:55 Not Given ONETIME ONE Ketorolac Tromethamine 15 mg 05/18/20 09:28 05/18/20 09:42 Toradol IVPUSH 05/18/20 09:29 15 mg ONETIME ONE Administration Lorazepam 0.5 mg 05/18/20 09:27 05/18/20 09:45 Ativan PO 05/18/20 09:28 0.5 mg ONETIME ONE Administration - Re-Assessments/Exams Free Text/Narrative Re-Assessment/Exam: 05/18/20 11:36 Feels better after our interventions. BP still too high. 05/18/20 11:36 Departure - Departure Time of Disposition: 11:45 Disposition: Home, Self-Care 01 Condition: Good Clinical Impression: HTN, goal below 130/80 Instructions: Managing Your Hypertension Referrals: PCP,None [Primary Care Provider] - Forms: ED Department Discharge Additional Instructions: Increase your lisinopril to 10 mg daily. Continue all your other medications as currently. See your doctor for recheck this next week. Sepsis Event Note (ED) - Focused Exam Vital Signs: Vital Signs Temp Pulse Resp BP Pulse Ox 05/18/20 10:00 11 L 166/76 H 96 05/18/20 09:30 12 176/72 H 97 05/18/20 09:00 10 L 174/69 H 95 05/18/20 08:48 36.5 C 65 13 163/72 H 97 05/18/20 08:40 10 L 170/74 H 96 - My Orders Last 24 Hours: My Active Orders 05/18/20 08:31 Cardiac Monitoring [RC] .As Directed EKG Documentation Completion [RC] ASDIRECTED EKG 12 Lead [EK] Routine 05/18/20 08:40 UA W/MICROSCOPIC [URIN] Stat Sodium Chloride 0.9% [Saline Flush] 10 ml FLUSH ASDIRECTED PRN Saline Lock Insert [OM.PC] Routine - Assessment/Plan Last 24 Hours: My Active Orders 05/18/20 08:31 Cardiac Monitoring [RC] .As Directed EKG Documentation Completion [RC] ASDIRECTED EKG 12 Lead [EK] Routine 05/18/20 08:40 UA W/MICROSCOPIC [URIN] Stat Sodium Chloride 0.9% [Saline Flush] 10 ml FLUSH ASDIRECTED PRN Saline Lock Insert [OM.PC] Routine
[2020-05-18] MEDS ORDERED: Aspirin 81 MG Tab.Chew PO ONE (08:54)
[2020-05-18] MEDS ORDERED: Acetaminophen 500 MG Tab PO ONE (08:59)
[2020-05-18] MEDS ORDERED: LORazepam 0.5 MG Tab PO ONE (09:27)
[2020-05-18] MEDS ORDERED: Ketorolac 30 MG/ML SDV IVPUSH ONE (09:28)
[2020-05-18] MEDS ORDERED: Lisinopril 5 MG Tab PO ONE (11:38)
[2020-05-18 11:43] VITALS: BP 173/72
== END 2020-05-18 12:03 | disposition home or self-care (01) ==
LOC: JP.ED 08:18
DX: I10 Essential (primary) hypertension (principal); E78.00 Pure hypercholesterolemia, unspecified; I25.2 Old myocardial infarction; K21.9 Gastro-esophageal reflux disease without esophagitis; Z88.6 Allergy status to analgesic agent; Z91.041 Radiographic dye allergy status; Z91.048 Other nonmedicinal substance allergy status; Z79.02 Long term (current) use of antithrombotics/antiplatelets; Z79.899 Other long term (current) drug therapy; Z86.73 Personal history of transient ischemic attack (TIA), and cerebral infarction without residual deficits; Z88.8 Allergy status to other drugs, medicaments and biological substances
CPT/HCPCS: 36415; 80048; 84484; 85027; 93005; 96374; 99284; A9270; J1885; 93010

== ENCOUNTER 2021-05-22 06:51 | Day surgery (SDC) | payer MEDICARE, BC ==
[~2021-05-22 06:51] MED LIST: Dextrose 5%-Lactated Ringers 1,000 ML IV SCH
[2021-05-22] MEDS ORDERED: Propofol 200 MG/20 ML SDV ONE (07:03)
[2021-05-22] MEDS ORDERED: fentaNYL 100 MCG/2 ML SDV ONE (07:03)
[2021-05-22 10:15] VITALS: BP 175/75; PULSE 65
== END 2021-05-22 11:17 | disposition home or self-care (01) ==
LOC: JP.SDS 06:51
PROVIDERS: ATTEND Surgery
DX: K29.60 Other gastritis without bleeding (principal); K21.9 Gastro-esophageal reflux disease without esophagitis; K44.9 Diaphragmatic hernia without obstruction or gangrene; I10 Essential (primary) hypertension; I25.10 Atherosclerotic heart disease of native coronary artery without angina pectoris; I42.9 Cardiomyopathy, unspecified; Z86.73 Personal history of transient ischemic attack (TIA), and cerebral infarction without residual deficits
CPT/HCPCS: 43239; 87081; J2704; J3010; J7121